=== PATIENT | female | born 1945 | race Caucasian/White ===

== ENCOUNTER → 2024-10-15 | Outpatient (CLI) | payer OTHER, SELFPAY ==
[2024-10-15 18:12] LABS: Amphetamine/Methamp Scrn,U Negative (Negative); Barbiturate Screen,Urine Positive (Negative); Benzodiazepines Screen,Urine Negative (Negative); Benzoylecgonine Screen, Ur Negative (Negative); Fentanyl Screen,Urine Negative (Negative); Opiate Screen,Urine Positive (Negative); THC Screen,Urine Negative (Negative)
== END | disposition home or self-care (01) ==
LOC: SLDO 15:48
PROVIDERS: PCP Family Medicine; Referring Provider Family Medicine; Visit Provider Family Medicine
DX: M17.9 Osteoarthritis of knee, unspecified (principal); Z79.891 Long term (current) use of opiate analgesic
CPT/HCPCS: 80307

== ENCOUNTER → 2024-10-21 | Outpatient (CLI) | payer OTHER, SELFPAY ==
[2024-10-21 10:24] LABS: Basophils % (Auto) 0 % (0-2.5); Eosinophils # (Auto) 0.2 Thou/mm3 (0.0-0.5); Eosinophils % (Auto) 3 % (0-10); Hematocrit 41.3 % (36.0-46.0); Hemoglobin 13.9 g/dL (12.0-16.0); Immature Granulocytes % (Auto) 0 % (0-0); Immature Granulocytes Auto 0.02 Thou/mm3 (0.00-0.00); Lymphocytes # (Auto) 1.8 Thou/mm3 (1.0-4.8); Lymphocytes % (Auto) 26 % (10-50); Mean Corpuscular HGB Conc 33.7 g/dl (31.0-37.0); Mean Corpuscular Volume 92 fL (80-100); Monocytes # (Auto) 0.6 Thou/mm3 (0.0-0.8); Monocytes % (Auto) 8 % (0-12); Neutrophils # (Auto) 4.3 Thou/mm3 (1.8-7.7); Neutrophils % (Auto) 62 % (37-80); Nucleated Red Blood Cell % 0 /100 WBC (0); Platelet Count 200 Thou/mm3 (140-440); RDW Standard Deviation 43.5 fL (36.4-46.3); Red Blood Count 4.49 Miln/mm3 (4.00-5.20); White Blood Count 6.9 Thou/mm3 (3.6-11.0)
[2024-10-21 10:34] LABS: Glucose Estimated Average 123 mg/dL (80-131); Hemoglobin A1C 5.9 % Hgb (4.8-6.0)
[2024-10-21 10:38] LABS: Partial Thromboplastin Time 29.9 Seconds (22.0-36.0); Prothrombin Time 10.8 Seconds (9.0-12.2)
[2024-10-21 10:51] LABS: Vitamin D 25 Hydroxy Total 64.5 ng/mL (7.3-40.2)
[2024-10-21 10:52] LABS: Creatinine MALB Rnd Ur 66 mg/dL (30-125); Microalbumin, Random Urine < 3 mg/L (0-300)
[2024-10-21 10:58] LABS: Ferritin 68 ng/mL (7.3-270.7)
[2024-10-21 11:01] LABS: Alanine Aminotransferase 16 U/L (10-49); Albumin, Serum 4.3 gm/dL (3.4-4.8); Alkaline Phosphatase 96 U/L (46-116); Anion Gap 9 (7-16); Aspartate Amino Transferase 19 U/L (0-34); BUN/Creatinine Ratio 23 Ratio (12-20); Bilirubin,Direct 0.1 mg/dL (0.0-0.3); Bilirubin,Total 0.4 mg/dL (0.3-1.2); Blood Urea Nitrogen 14 mg/dL (9-23); Calcium 9.3 mg/dL (8.3-10.6); Calcium (Corrected) 9.3 mg/dL (8.5-10.1); Carbon Dioxide 29.1 mMol/L (20.0-31.0); Cardiac Risk Estimate 3.6 RATIO (3.7-5.6); Chloride 102 mMol/L (98-107); Cholesterol 144 mg/dL (132-200); Creatinine (Component) 0.6 mg/dL (0.6-1.3); Globulin 2.2 gm/dL (2.3-3.5); Glucose 113 mg/dL (74-106); HDL Cholesterol 40 mg/dL (40-60); LDL Cholesterol,Calculated 67 mg/dL (0-130); Osmolality,Calculated 280 (275-295); Potassium 4.4 mMol/L (3.4-5.1); Sodium 140 mMol/L (136-145); Total Protein 6.5 gm/dL (5.7-8.2); Triglycerides 184 mg/dL (30-150); eGFR > 60 See Note
== END | disposition home or self-care (01) ==
LOC: COPL 08:16
PROVIDERS: PCP Family Medicine; Referring Provider Internal Medicine Gastroenterology; Visit Provider Nurse Practitioner Family
DX: E11.65 Type 2 diabetes mellitus with hyperglycemia (principal); R13.10 Dysphagia, unspecified
CPT/HCPCS: 36415; 80053; 80061; 82043; 82248; 82306; 82570; 82728; 83036; 85025; 85610; 85730

== ENCOUNTER → 2024-10-23 | Outpatient (CLI) | payer OTHER, SELFPAY ==
[2024-10-30 06:45] LABS: Helicobacter pylori Ag, Stool* NOT DETECTED (NOT DETECTED)
[2024-11-02 06:35] LABS: Calprotectin, Stool* 331 mcg/g
== END | disposition home or self-care (01) ==
LOC: SLDO 13:23
PROVIDERS: Referring Provider Nurse Practitioner Family; Visit Provider Nurse Practitioner Family
DX: R13.10 Dysphagia, unspecified (principal)
CPT/HCPCS: 83993; 87338

== ENCOUNTER 2024-11-18 11:05 | Day surgery (SDC) | payer OTHER, SELFPAY ==
--- NOTE | 2024-11-17 09:18 | EKG_ITS ---
[facility] Test Date: 2024-11-17 Pat Name: BRENT HWANG Department: Room: - Gender: Female Lead Web Developer: CELESTINE : 1945 Requested By: Justus Toro Order Number: [id number] Reading MD: Justus Toro Measurements Intervals [place] Rate: 80 P: 25 VA: 221 QRS: -16 QRSD: 110 T: 66 QT: 393 QTc: 454 Interpretive Statements SINUS RHYTHM WITH FIRST DEGREE AV BLOCK WITH OCCASIONAL ECTOPIC PREMATURE COMPLEXES MODERATE INTRAVENTRICULAR CONDUCTION DELAY NONSPECIFIC T-WAVE ABNORMALITY Compared to ECG 08/29/2021 13:32:36 First degree AV block now present Intraventricular conduction delay now present T-wave abnormality now present ST (T wave) deviation no longer present /store/S0/[id number]
[2024-11-17 13:35] LABS: Alanine Aminotransferase 15 U/L (10-49); Albumin, Serum 4.1 gm/dL (3.4-4.8); Albumin/Globulin Ratio 1.8 (1.2-2.2); Alkaline Phosphatase 86 U/L (46-116); Anion Gap 7 (7-16); Aspartate Amino Transferase 17 U/L (0-34); BUN/Creatinine Ratio 18 Ratio (12-20); Bilirubin,Total 0.5 mg/dL (0.3-1.2); Blood Urea Nitrogen 11 mg/dL (9-23); Calcium 9.1 mg/dL (8.3-10.6); Calcium (Corrected) 9.1 mg/dL (8.5-10.1); Carbon Dioxide 29.3 mMol/L (20.0-31.0); Chloride 103 mMol/L (98-107); Creatinine (Component) 0.6 mg/dL (0.6-1.3); Globulin 2.3 gm/dL (2.3-3.5); Glucose 116 mg/dL (74-106); Osmolality,Calculated 277 (275-295); Potassium 4.3 mMol/L (3.4-5.1); Sodium 139 mMol/L (136-145); Total Protein 6.4 gm/dL (5.7-8.2); eGFR > 60 See Note
[2024-11-17 14:06] VITALS: BMI 31.1
[2024-11-18 11:35] VITALS: BP 141/74; PULSE 83; RESP 13; TEMP 37; O2SAT 97
[2024-11-18] MEDS: SODIUM CHLORIDE 0.9% 500 ML 500 ML 20 ML IV (11:45)
[2024-11-18 15:20] VITALS: BP 112/88; PULSE 82; RESP 18; TEMP 36.7; O2SAT 98
[2024-11-18 15:30] VITALS: BP 106/64; PULSE 69; RESP 16; O2SAT 100
[2024-11-18 15:40] VITALS: BP 114/72; PULSE 64; RESP 14; TEMP 36.7; O2SAT 100
--- NOTE | 2024-11-18 16:04 | SUR.PHASEII ---
1520: Pt received in [facility] via [facility]. Report from Abi BARNETT and Dr. Toro. Pt groggy, but awake. Resp even, unlabored. VS stable. Denies pain. 1550: Pt more awake, alert. Sitting up toleratiing po ice chips with no difficulty swallowing and no n/v.
--- NOTE | 2024-11-18 16:37 | SUR.PHASEII ---
1605: Pt fully awake, oriented x3. Pt dressed. Assisted to transport chair. Ambulation steady. Pt and friend stated understanding of discharge instructions. Pt discharged from [facility] in stable condition.
== END 2024-11-18 16:05 | disposition home or self-care (01) ==
PROVIDERS: Anesthesiology; PCP Family Medicine; Referring Provider Internal Medicine Gastroenterology; Visit Provider Internal Medicine Gastroenterology
PROC: 0DJD8ZZ Inspection of Lower Intestinal Tract, Via Natural or Artificial Opening Endoscopic (ICD-10-PCS; CPT 45378; principal; 2024-11-18 12:45)
PROC: (CPT 43239; 2024-11-18 12:45)
DX: K52.9 Noninfective gastroenteritis and colitis, unspecified (principal); D12.2 Benign neoplasm of ascending colon; D12.4 Benign neoplasm of descending colon; D12.3 Benign neoplasm of transverse colon; D12.5 Benign neoplasm of sigmoid colon; K64.1 Second degree hemorrhoids; K57.30 Diverticulosis of large intestine without perforation or abscess without bleeding; K29.50 Unspecified chronic gastritis without bleeding; K31.89 Other diseases of stomach and duodenum; K44.9 Diaphragmatic hernia without obstruction or gangrene; Z01.810 Encounter for preprocedural cardiovascular examination; I25.10 Atherosclerotic heart disease of native coronary artery without angina pectoris
CPT/HCPCS: 45380; 45385; 36415; 80053; 93005; A4217; A4649; J2250; J2371; J2704; J3010; J7040

== ENCOUNTER → 2025-01-26 | Outpatient (CLI) | payer OTHER, SELFPAY ==
[2025-01-26 11:53] LABS: Basophils % (Auto) 1 % (0-2.5); Eosinophils # (Auto) 0.1 Thou/mm3 (0.0-0.5); Eosinophils % (Auto) 2 % (0-10); Hematocrit 40.3 % (36.0-46.0); Hemoglobin 13.4 g/dL (12.0-16.0); Immature Granulocytes % (Auto) 0 % (0-0); Immature Granulocytes Auto 0.01 Thou/mm3 (0.00-0.00); Lymphocytes # (Auto) 2.2 Thou/mm3 (1.0-4.8); Lymphocytes % (Auto) 34 % (10-50); Mean Corpuscular HGB Conc 33.3 g/dl (31.0-37.0); Mean Corpuscular Hemoglobin 31.6 pg (25.0-35.0); Mean Corpuscular Volume 95 fL (80-100); Monocytes # (Auto) 0.5 Thou/mm3 (0.0-0.8); Monocytes % (Auto) 8 % (0-12); Neutrophils # (Auto) 3.7 Thou/mm3 (1.8-7.7); Neutrophils % (Auto) 56 % (37-80); Nucleated Red Blood Cell % 0 /100 WBC (0); Platelet Count 215 Thou/mm3 (140-440); Red Blood Count 4.24 Miln/mm3 (4.00-5.20); White Blood Count 6.6 Thou/mm3 (3.6-11.0)
[2025-01-26 12:03] LABS: Glucose Estimated Average 120 mg/dL (80-131); Hemoglobin A1C 5.8 % Hgb (4.8-6.0)
[2025-01-26 12:44] LABS: Alanine Aminotransferase 18 U/L (10-49); Albumin, Serum 4.2 gm/dL (3.4-4.8); Albumin/Globulin Ratio 1.9 (1.2-2.2); Alkaline Phosphatase 84 U/L (46-116); Anion Gap 6 (7-16); Aspartate Amino Transferase 19 U/L (0-34); BUN/Creatinine Ratio 22 Ratio (12-20); Bilirubin,Total 0.3 mg/dL (0.3-1.2); Blood Urea Nitrogen 13 mg/dL (9-23); Carbon Dioxide 29.2 mMol/L (20.0-31.0); Chloride 101 mMol/L (98-107); Creatinine (Component) 0.6 mg/dL (0.6-1.3); Globulin 2.2 gm/dL (2.3-3.5); Glucose 139 mg/dL (74-106); Osmolality,Calculated 274 (275-295); Potassium 4.3 mMol/L (3.4-5.1); Sodium 136 mMol/L (136-145); Total Protein 6.4 gm/dL (5.7-8.2); eGFR > 60 See Note
[2025-01-26 12:47] LABS: Microalbumin, Random Urine < 3 mg/L (0-300)
[2025-01-26 12:59] LABS: Creatinine MALB Rnd Ur 75 mg/dL (30-125)
[2025-01-26 13:02] LABS: Cholesterol 139 mg/dL (132-200); HDL Cholesterol 35 mg/dL (40-60); LDL Cholesterol,Calculated 61 mg/dL (0-130); Triglycerides 215 mg/dL (30-150)
== END | disposition home or self-care (01) ==
PROVIDERS: PCP Family Medicine; Referring Provider Nurse Practitioner Family; Visit Provider Nurse Practitioner Family
DX: E11.65 Type 2 diabetes mellitus with hyperglycemia (principal)
CPT/HCPCS: 36415; 80053; 80061; 82043; 82570; 83036; 85025

== ENCOUNTER → 2025-02-11 | Outpatient (CLI) | payer OTHER, SELFPAY ==
--- NOTE | 2025-02-11 11:20 | XR_ITS ---
Examination: Abdomen sonogram, complete Date and time of exam: February 11, 2025 1124 hours INDICATIONS: Epigastric pain this week. Technique: Multiple real-time grayscale transabdominal sonographic images of the abdomen have been obtained. Findings: Absent gallbladder Common bile duct 0.6 cm no stones Pancreatic head 2.3 cm Aorta not enlarged Liver 15.4 cm no focal liver lesions Normal hepatopedal portal venous flow Patent IVC Right kidney 10.1 cm renal cortex 2.2 cm Left kidney 10.1 cm renal cortex 2.2 cm Mild left renal parenchymal scar formation Spleen 8.7 cm IMPRESSION: Absent gallbladder Normal common bile duct No focal liver lesions
== END | disposition home or self-care (01) ==
LOC: CDIM 11:01
PROVIDERS: PCP Family Medicine; Referring Provider Family Medicine; Visit Provider Family Medicine
DX: R10.9 Unspecified abdominal pain (principal); Z90.49 Acquired absence of other specified parts of digestive tract
CPT/HCPCS: 76700

== ENCOUNTER → 2025-04-27 | Outpatient (CLI) | payer OTHER, SELFPAY ==
[2025-04-27 11:42] LABS: Basophils # (Auto) 0.0 Thou/mm3 (0.0-0.2); Basophils % (Auto) 0 % (0-2.5); Eosinophils # (Auto) 0.2 Thou/mm3 (0.0-0.5); Eosinophils % (Auto) 3 % (0-10); Hematocrit 40.2 % (36.0-46.0); Hemoglobin 13.2 g/dL (12.0-16.0); Immature Granulocytes Auto 0.01 Thou/mm3 (0.00-0.00); Lymphocytes # (Auto) 2.8 Thou/mm3 (1.0-4.8); Lymphocytes % (Auto) 41 % (10-50); Mean Corpuscular HGB Conc 32.8 g/dl (31.0-37.0); Mean Corpuscular Hemoglobin 31.8 pg (25.0-35.0); Mean Corpuscular Volume 97 fL (80-100); Monocytes # (Auto) 0.6 Thou/mm3 (0.0-0.8); Monocytes % (Auto) 9 % (0-12); Neutrophils # (Auto) 3.2 Thou/mm3 (1.8-7.7); Neutrophils % (Auto) 47 % (37-80); Nucleated Red Blood Cell # 0.00 Thou/mm3 (0.00-0.00); Nucleated Red Blood Cell % 0 /100 WBC (0); Platelet Count 213 Thou/mm3 (140-440); RDW Standard Deviation 47.0 fL (36.4-46.3); Red Blood Count 4.15 Miln/mm3 (4.00-5.20); White Blood Count 6.8 Thou/mm3 (3.6-11.0)
[2025-04-27 11:43] LABS: Glucose Estimated Average 126 mg/dL (80-131); Hemoglobin A1C 6.0 % Hgb (4.8-6.0)
[2025-04-27 11:52] LABS: Creatinine MALB Rnd Ur 58 mg/dL (30-125); Microalbumin, Random Urine < 3 mg/L (0-300)
[2025-04-27 12:09] LABS: Alanine Aminotransferase 14 U/L (10-49); Albumin, Serum 3.9 gm/dL (3.4-4.8); Albumin/Globulin Ratio 2.0 (1.2-2.2); Alkaline Phosphatase 82 U/L (46-116); Anion Gap 7 (7-16); Aspartate Amino Transferase 19 U/L (0-34); BUN/Creatinine Ratio 17 Ratio (12-20); Bilirubin,Total 0.3 mg/dL (0.3-1.2); Blood Urea Nitrogen 12 mg/dL (9-23); Calcium 9.0 mg/dL (8.3-10.6); Calcium (Corrected) 9.1 mg/dL (8.5-10.1); Carbon Dioxide 29.6 mMol/L (20.0-31.0); Cardiac Risk Estimate 3.7 RATIO (3.7-5.6); Chloride 103 mMol/L (98-107); Cholesterol 139 mg/dL (132-200); Creatinine (Component) 0.7 mg/dL (0.6-1.3); Globulin 2.0 gm/dL (2.3-3.5); Glucose 97 mg/dL (74-106); HDL Cholesterol 38 mg/dL (40-60); LDL Cholesterol,Calculated 57 mg/dL (0-130); Osmolality,Calculated 279 (275-295); Potassium 4.5 mMol/L (3.4-5.1); Sodium 140 mMol/L (136-145); Total Protein 5.9 gm/dL (5.7-8.2); Triglycerides 221 mg/dL (30-150); eGFR > 60 See Note
== END | disposition home or self-care (01) ==
PROVIDERS: PCP Family Medicine; Referring Provider Nurse Practitioner Family; Visit Provider Nurse Practitioner Family
DX: E11.65 Type 2 diabetes mellitus with hyperglycemia (principal); I50.42 Chronic combined systolic (congestive) and diastolic (congestive) heart failure; K21.9 Gastro-esophageal reflux disease without esophagitis; F02.A0 Dementia in other diseases classified elsewhere, mild, without behavioral disturbance, psychotic disturbance, mood disturbance, and anxiety; R23.9 Unspecified skin changes
CPT/HCPCS: 36415; 80053; 80061; 82043; 82570; 83036; 85025

== ENCOUNTER → 2025-07-01 | Outpatient (CLI) | payer OTHER, SELFPAY ==
--- NOTE | 2025-07-01 10:35 | XR_ITS ---
Examination:Right hip AP, lateral, AP pelvis 3 views Technique: Hip AP lateral, AP pelvis, 3 views Exam date and time:July 01, 2025, 1037 hours INDICATIONS: Right hip pain beginning one week ago FINDINGS: Moderate osteopenia No right hip fracture or dislocation Moderate narrowing hip joints bilaterally Bones of the pelvis intact IMPRESSION: Moderate bilateral hip osteophytes arthritis.
== END | disposition home or self-care (01) ==
PROVIDERS: PCP Family Medicine; Referring Provider Registered Nurse; Visit Provider Registered Nurse
DX: M25.752 Osteophyte, left hip (principal); M25.751 Osteophyte, right hip; M13.852 Other specified arthritis, left hip; M13.851 Other specified arthritis, right hip
CPT/HCPCS: 73502

== ENCOUNTER → 2025-07-20 | Outpatient (CLI) | payer OTHER, SELFPAY ==
[2025-07-20 14:27] LABS: Collection Type, Urine Clean Catch
[2025-07-20 16:42] LABS: Bacteria,Urine Rare; Bilirubin,Urine Negative (Negative); Blood,Urine 2+ (Negative); Color,Urine Yellow (Lt Yel-Yel); Glucose, Urine Negative (Negative); Ketones,Urine Negative (Negative); Leukocyte Esterase,Urine Positive (Negative); Nitrite,Urine Negative (Negative); PH,Urine 5.5 (5.0-7.0); Protein,Urine Negative (Neg - Trace); RBC,Urine 1 /hpf (0-3); Specific Gravity,Urine 1.014 (1.001-1.035); Squamous Epithelial Cell,Urine 8 /hpf (0-5); Urobilinogen,Urine Negative mg/dL (0.0-1.0); WBC,Urine 66 /hpf (0-5)
[2025-07-20 16:55] LABS: Clarity,Urine Hazy (Clear/Hazy)
== END | disposition home or self-care (01) ==
LOC: SLDO 14:16
PROVIDERS: PCP Family Medicine; Referring Provider Family Medicine; Visit Provider Family Medicine
DX: N39.0 Urinary tract infection, site not specified (principal)
CPT/HCPCS: 81001; 87086

== ENCOUNTER 2025-07-21 09:38 | Emergency (ER) | payer OTHER, SELFPAY ==
[2025-07-21] VITALS (11 sets, daily range): BP systolic 74–121; BP diastolic 38–86; PULSE 84–102; RESP 14–23; TEMP 37.1–37.7; O2SAT 90–100; BMI 28.3
--- NOTE | 2025-07-21 10:16 | EKG_ITS ---
[facility] Test Date: 2025-07-21 Pat Name: BRENT HWAGN Department: Room: - Gender: Female Arts And Crafts Instructor: : 1945 Requested By: Hector Mckeon (LETY) Order Number: [id number] Reading MD: Hector Mckeon (DRIER UNLOADER) Measurements Intervals [place] Rate: 84 P: 51 CO: 214 QRS: -5 QRSD: 105 T: 79 QT: 357 QTc: 422 Interpretive Statements SINUS RHYTHM WITH FIRST DEGREE AV BLOCK NONSPECIFIC T-WAVE ABNORMALITY Compared to ECG 11/17/2024 12:46:37 Intraventricular conduction delay no longer present T-wave abnormality still present /store/S0/[id number]/[id number].pdf
--- NOTE | 2025-07-21 10:16 | XR_ITS ---
EXAMINATION: AP chest single view TECHNIQUE: AP portable sitting chest single view Date and time: July 21, 2025, 1019 hours, comparison August 29, 2021 INDICATION: Chest pain coughing today. FINDINGS: Basilar bronchitis pattern Normal heart size Aortic valve replacement Median sternotomy wires No lobar pneumonia or isaac pulmonary edema IMPRESSION: Basilar bronchitis pattern
--- NOTE | 2025-07-21 10:17 | PD.EDRME ---
Rapid Medical Screening Exam RME Arrival date/time: 07/21/25 09:38 80-year-old female presents to the emergency department via EMS for complaints of generalized weakness. Chief Complaint: General Adult/Misc Complain Vital signs: Vital Signs Temperature 99.2 F 07/21/25 09:38 Pulse Rate 95 07/21/25 09:38 Respiratory Rate 19 07/21/25 09:38 Blood Pressure 106/65 07/21/25 09:38 Pulse Oximetry (%) 92 L 07/21/25 09:38 Oxygen Delivery Method Room Air 07/21/25 09:38
[2025-07-21 10:48] LABS: Collection Type, Urine Clean Catch
[2025-07-21 10:54] LABS: Basophils # (Auto) 0.0 Thou/mm3 (0.0-0.2); Basophils % (Auto) 0 % (0-2.5); Eosinophils # (Auto) 0.0 Thou/mm3 (0.0-0.5); Eosinophils % (Auto) 0 % (0-10); Hematocrit 40.0 % (36.0-46.0); Hemoglobin 13.6 g/dL (12.0-16.0); Immature Granulocytes Auto 0.06 Thou/mm3 (0.00-0.00); Lymphocytes # (Auto) 0.2 Thou/mm3 (1.0-4.8); Lymphocytes % (Auto) 2 % (10-50); Mean Corpuscular HGB Conc 34.0 g/dl (31.0-37.0); Mean Corpuscular Hemoglobin 31.3 pg (25.0-35.0); Mean Corpuscular Volume 92 fL (80-100); Monocytes # (Auto) 0.5 Thou/mm3 (0.0-0.8); Monocytes % (Auto) 4 % (0-12); Neutrophils # (Auto) 12.2 Thou/mm3 (1.8-7.7); Neutrophils % (Auto) 93 % (37-80); Nucleated Red Blood Cell # 0.00 Thou/mm3 (0.00-0.00); Nucleated Red Blood Cell % 0 /100 WBC (0); Platelet Count 180 Thou/mm3 (140-440); RDW Standard Deviation 44.0 fL (36.4-46.3); Red Blood Count 4.34 Miln/mm3 (4.00-5.20); White Blood Count 13.0 Thou/mm3 (3.6-11.0)
--- NOTE | 2025-07-21 11:00 | PC.NURSE ---
Pt came in due to feeling gen weakness and had recent dx of UTI and is currently being treated by pmd. pt was assessed in triage and noted low bp, so pt was placed in ed bed 4 for further evaluation. pt has iv line and placed on campus monitor. bp 91/57 currently in room. md ordered iv fluids for bp. pt A&Ox4.
[2025-07-21 11:09] LABS: INR 1.0 (0.9-1.3); Partial Thromboplastin Time 32.5 Seconds (22.0-36.0); Prothrombin Time 11.1 Seconds (9.0-12.2)
[2025-07-21 11:12] LABS: Alanine Aminotransferase 15 U/L (10-49); Albumin, Serum 4.3 gm/dL (3.4-4.8); Albumin/Globulin Ratio 2.3 (1.2-2.2); Alkaline Phosphatase 82 U/L (46-116); Anion Gap 9 (7-16); Aspartate Amino Transferase 21 U/L (0-34); BUN/Creatinine Ratio 15 Ratio (12-20); Bilirubin,Total 0.7 mg/dL (0.3-1.2); Blood Urea Nitrogen 12 mg/dL (9-23); Calcium 8.8 mg/dL (8.3-10.6); Calcium (Corrected) 8.8 mg/dL (8.5-10.1); Carbon Dioxide 27.2 mMol/L (20.0-31.0); Chloride 101 mMol/L (98-107); Creatinine (Component) 0.8 mg/dL (0.6-1.3); Estimated Creatinine Clearance 49.8 mL/min (>60); Globulin 1.9 gm/dL (2.3-3.5); Glucose 241 mg/dL (74-106); Magnesium 2.0 mg/dL (1.6-2.6); Osmolality,Calculated 281 (275-295); Potassium 4.2 mMol/L (3.4-5.1); Sodium 137 mMol/L (136-145); Total Protein 6.2 gm/dL (5.7-8.2); Troponin I < 0.020 ng/mL (0.0-0.045); eGFR > 60 See Note
[2025-07-21] MEDS: SODIUM CHLORIDE 0.9% 1000 ML 1,000 ML 999 ML IV (11:13)
[2025-07-21 11:43] LABS: Amphetamine/Methamp Scrn,U Negative (Negative); Barbiturate Screen,Urine Positive (Negative); Benzodiazepines Screen,Urine Negative (Negative); Benzoylecgonine Screen, Ur Negative (Negative); Fentanyl Screen,Urine Negative (Negative); Opiate Screen,Urine Positive (Negative); THC Screen,Urine Negative (Negative)
[2025-07-21 11:54] LABS: B-Type Natriuretic Peptide 76 pg/mL (0-100)
--- NOTE | 2025-07-21 11:58 | PD.EDWEAK ---
ED Weakness RME/HPI General Chief complaint: General Adult/Misc Complain Stated complaint: WEAKNESS Arrival date/time: 07/21/25 09:38 RME / HPI RME / HPI Narrative: 07/21/25 09:38 80-year-old female presents to the emergency department via EMS for complaints of generalized weakness. DR. FELDER MAIN ED EVALUATION 80 year old female with history of hypertension, diabetes, hyperlipidemia presents to the ED [facility] from [facility] for evaluation of global weakness today. Patient reports she was having difficulty getting out of bed for breakfast this morning, prompting calling 911. Additionally complains of diffuse body pain though states I always have pain . States pain today unchanged. Patient additionally reports she has been packing the last several days in preparation to moving in with daughter this upcoming Saturday. Patient states she feels worn out from packing and unsure if that is exacerbating her symptoms. Denies fever, chills, sweating. Denies chest pain, cough, shortness of breath. Denies nausea, vomiting, diarrhea, constipation. Denies dysuria, urinary frequency and urgency. Related Data Home Medications ?Medication ?Instructions ?Recorded ?Confirmed docusate sodium 100 mg capsule 100 mg PO QDAY 08/29/21 11/17/24 (Colace) hydrocodone 10 mg-acetaminophen 1 tab PO Q6H PRN Moderate Pain 08/29/21 11/17/24 325 mg tablet (Scale Score 5-6) pantoprazole 40 mg tablet,delayed 40 mg PO QDAY 08/29/21 11/17/24 release sacubitril 24 mg-valsartan 26 mg 0.5 tab PO BID 08/29/21 11/17/24 tablet (Entresto) duloxetine 60 mg capsule,delayed 60 mg PO QDAY 11/17/24 11/17/24 release furosemide 20 mg tablet 20 mg PO QDAY 11/17/24 11/17/24 insulin aspart U-100 100 unit/mL 8 unit subcut TID 11/17/24 11/17/24 (3 mL) subcutaneous pen (Novolog FlexPen U-100 Insulin aspart) insulin degludec 100 26 unit subcut QDAY 11/17/24 11/17/24 unit-liraglutide 3.6 mg/mL(3 mL) subcutaneous pen (Xultophy 100/3.6) lovastatin 40 mg tablet 40 mg PO QDAY 11/17/24 11/17/24 pramipexole 0.25 mg tablet 0.25 mg PO QDAY 11/17/24 11/17/24 pregabalin 100 mg capsule 100 mg PO TID 11/17/24 11/17/24 primidone 50 mg tablet 100 mg PO BID 11/17/24 11/17/24 semaglutide 0.25 mg or 0.5 mg (2 0.25 mg subcut QWEEK 11/17/24 11/17/24 mg/3 mL) subcutaneous pen injector (Ozempic) Allergies Allergy/AdvReac Type Severity Reaction Status Date / Time NSAIDS (Non-Steroidal Allergy Severe Anaphylaxis Verified 11/18/24 15:39 Anti-Inflamma quinine Allergy Severe Anaphylaxis Verified 11/18/24 15:39 Review of Systems Review of Systems Systems Reviewed: All systems reviewed, normal except as documented Past Medical History Past Medical History NEUROLOGIC: Positive Neurological Disorders (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 ) CARDIAC: Positive Cardiac Disorders, Congestive Heart Failure and Hypertension RESPIRATORY: Positive Chronic Obstructive Pulmonary Disease (COPD) and Sleep Apnea GASTROINTESTINAL: Positive Gastrointestinal Disorders and Gastroesophageal Reflux Disease MUSCULOSKELETAL: Positive Musculoskeletal Disorders and Arthritis ENDOCRINE: Positive Endocrine Disorders and Diabetes Mellitus Type 2 PSYCHO/SOCIAL: Positive Depression and Anxiety OTHER HISTORY: Positive Cancer Surgical History SURGICAL: Positive Open Heart Surgery, Vascular Surgery (VALVE REPLACEMENT), Abdominal Surgery (LAPAROTOMY FOR COLON ADHESION), Hysterectomy and Tubal Ligation Social History SMOKING STATUS: Never smoker ED Exam Narrative Physical exam: GENERAL APPEARANCE: alert and oriented x 4, well-developed, well-nourished HEENT: Normocephalic, atraumatic; pupils equal, round, reactive to light; EOMI; mucous membranes pink, moist; oropharynx clear NECK: Supple LUNGS: CTABL; no wheezes, no rales, no rhonchi HEART: Regular rate, regular rhythm; normal S1, S2; no murmurs ABDOMEN: non distended; normal BS; soft, no tenderness, no guarding, no rebound; no masses, no organomegaly, no hernia BACK: no CVA tenderness EXTREMITIES: atraumatic; no edema NEUROLOGIC: awake; alert and oriented x4; cranial nerves II-XII grossly intact; no focal sensory or motor deficits PSYCHIATRIC: appropriate mood and affect SKIN: warm, dry, normal color; no rashes Course Course Course Narrative: Patient remains clinically stable throughout the emergency department visit. We reviewed all the results, analysis, and treatment plans. Patient is amenable to discharge. Strict return precautions were outlined. Quality Measures none Orders Category Date Time Status Bedside COVID-19 Antigen Test NOW Care 07/21/25 15:23 Completed Bedside Influenza A&B Antigen Test NOW Care 07/21/25 15:23 Completed Top Steep Tender NOW Care 07/21/25 10:16 Completed EKG (ED ONLY) *Do not use* NOW Care 07/21/25 10:16 Completed EKG (ED Only) Stat Exams 07/21/25 10:16 Draft XR chest 1V portable Stat Exams 07/21/25 10:16 Completed B-Type Natriuretic Peptide Stat Lab 07/21/25 10:35 Completed Blood Culture (Lab) Stat Lab 07/21/25 12:29 Received CBC Stat Lab 07/21/25 10:35 Completed Comprehensive Metabolic Panel Stat Lab 07/21/25 10:35 Completed Drug Screen,Urine Stat Lab 07/21/25 10:35 Completed Lactate (Lactic Acid) Stat Lab 07/21/25 12:29 Completed Lactic Acid, 3 HR Stat Lab 07/21/25 15:55 Completed Magnesium Stat Lab 07/21/25 10:35 Completed Partial Thromboplastin Time Stat Lab 07/21/25 10:35 Completed Procalcitonin Stat Lab 07/21/25 12:29 Completed Prothrombin Time with INR Stat Lab 07/21/25 10:35 Completed Troponin I Stat Lab 07/21/25 10:35 Completed Urinalysis, C/S if Indicated Stat Lab 07/21/25 10:35 Completed HYDROcodone/APAP 10 [[place] 10] Med 07/21/25 12:10 Discontinued 1 tab PO X1 ONE Sodium Chloride 0.9% 1000 ml [Ns] 1,000 ml Med 07/21/25 10:38 Discontinued IV 999 mls/hr Vital Signs Vital signs: Vital Signs Temperature 99.2 F 07/21/25 09:38 Pulse Rate 95 07/21/25 09:38 Respiratory Rate 19 07/21/25 09:38 Blood Pressure 106/65 07/21/25 09:38 Pulse Oximetry (%) 92 L 07/21/25 09:38 Oxygen Delivery Method Room Air 07/21/25 09:38 Pulse ox is 92% on room air which is low. Weakness MDM Narrative MDM Narrative:: Denita Tucker am scribing for and in the presence of Dr. Felder. Patient data External records reviewed:: [facility] previous records and EMS form Clinical information provided by:: patient and EMS Social determinants that could affect healthcare access:: none Patient has the following chronic illnesses:: HTN, DM, HLD How is presenting disease/condition affected by chronic disease/condition?: exacerbated by Evaluation data The following diagnostics were reviewed and interpreted by me:: lab results, radiology exam(s) and EKG tracing(s) (EKG @ 10:36 AM. Normal sinus rhythm with first degree AV block, rate 84, no STEMI ) Lab and/or radiology exams considered but not ordered:: None Interpretation Summary: Ordering Physician: Linda MOON)Hector NP Date of Service: 07/21/25 Procedure(s): XR chest 1V portable Accession Number(s): [id number] cc: Linda MOON),Hector DAVIDSON; Brett Feliciano MD~ EXAMINATION: AP chest single view TECHNIQUE: AP portable sitting chest single view Date and time: July 21, 2025, 1019 hours, comparison August 29, 2021 INDICATION: Chest pain coughing today. FINDINGS: Basilar bronchitis pattern Normal heart size Aortic valve replacement Median sternotomy wires No lobar pneumonia or isaac pulmonary edema IMPRESSION: Basilar bronchitis pattern Dictated By: Brett Feliciano MD Signed By: <Electronically signed by Brett Feliciano MD in OV> 07/21/25 1040 Medications / Prescriptions Medications or Prescriptions considered but not ordered:: None Medication administrations:: Medication Administration History Discontinued Medications Hydrocodone Bitart/Acetaminophen (Hydrocodone/Apap 10/325 Tab) 1 tab PO X1 ONE Stop: 07/21/25 12:11 Last Admin: 07/21/25 12:54 Dose: 1 tab Documented By: JANNIE Sodium Chloride (Ns) 1,000 mls @ 999 mls/hr IV .Q1H1M ONE Stop: 07/21/25 11:38 Last Infusion: 07/21/25 12:55 Dose: Infused Documented By: Admin: 07/21/25 11:13 Dose: 999 mls/hr Documented By: GORDON See above Consultations Consultation(s) initiated? (list below): No Diagnosis Weakness Differential Diagnosis: anemia, hypoglycemia, sepsis and dehydration Most likely diagnosis given after review of the tests above:: Generalized weakness Admission Indicated Admission indicated?: not indicated Admission Request Was there a request for admission?: No Disposition Plan Disposition Plan: Discharge Discharge Attestation Discharge Attestation: The patient and all family members were given an opportunity to ask questions and understood the discharge instructions. Discharge instructions specifically effects, indications for sooner follow up or return to the emergency department, and the expected course of current diagnosis. Patient condition: Stable Discharge Plan Plan Patient Disposition: HOME (Self Care) Prescriptions/Referrals Prescriptions/Med Rec: No Action hydrocodone-acetaminophen 10-325 mg Tablet 1 tab PO Q6H PRN (Reason: Moderate Pain (Scale Score 5-6)) pantoprazole 40 mg Tablet,Delayed Release (Dr/Ec) 40 mg PO QDAY docusate sodium [Colace] 100 mg Capsule 100 mg PO QDAY sacubitril-valsartan [Entresto] 24-26 mg Tablet 0.5 tab PO BID duloxetine 60 mg capsule,delayed release(DR/EC) 60 mg PO QDAY primidone 50 mg tablet 100 mg PO BID lovastatin 40 mg tablet 40 mg PO QDAY furosemide 20 mg tablet 20 mg PO QDAY pramipexole 0.25 mg tablet 0.25 mg PO QDAY insulin aspart U-100 [Novolog FlexPen U-100 Insulin] 100 unit/mL (3 mL) insulin pen 8 unit subcut TID pregabalin 100 mg capsule 100 mg PO TID Xultophy 100/3.6 100 unit-3.6 mg /mL (3 mL) insulin pen 26 unit subcut QDAY Ozempic 0.25 mg or 0.5 mg (2 mg/3 mL) pen injector 0.25 mg subcut QWEEK Rx Instructions: for 4 weeks Referrals: Patricio Alejandro MD [Primary Care Provider, Family Practice] - In 1 week Problem List Clinical Impression: Generalized weakness Patient/Caregiver Discharge Instructions Education Materials: ED Weakness (Uncertain Cause) Print Language: Mosotho Stand Alone Forms: [employer] Award Info., Patient Portal Info Letter
[2025-07-21 12:42] LABS: Lactate (Lactic Acid) 2.1 mMol/L (0.4-2.0)
[2025-07-21 13:08] LABS: Procalcitonin 0.78 ng/ml (0.0-0.49)
[2025-07-21 14:36] LABS: Bilirubin,Urine Negative (Negative); Blood,Urine Negative (Negative); Clarity,Urine Clear (Clear/Hazy); Color,Urine Yellow (Lt Yel-Yel); Culture Indicated,Urine Not Indicated; Glucose, Urine Negative (Negative); Ketones,Urine Trace (Negative); Leukocyte Esterase,Urine Positive (Negative); Nitrite,Urine Negative (Negative); PH,Urine 6.0 (5.0-7.0); Protein,Urine Negative (Neg - Trace); RBC,Urine 3 /hpf (0-3); Specific Gravity,Urine 1.026 (1.001-1.035); Squamous Epithelial Cell,Urine 1 /hpf (0-5); Urobilinogen,Urine Negative mg/dL (0.0-1.0); WBC,Urine 3 /hpf (0-5)
[2025-07-21 15:39] LABS: Reflex Lactate? Y
[2025-07-21 16:03] LABS: Lactic Acid, 3 HR 1.4 mMol/L (0.4-2.0)
== END 2025-07-21 17:03 | disposition home or self-care (01) ==
PROVIDERS: Nurse Practitioner Primary Care; Emergency Provider Emergency Medicine; PCP Family Medicine
DX: J40 Bronchitis, not specified as acute or chronic (principal); E11.9 Type 2 diabetes mellitus without complications; E78.5 Hyperlipidemia, unspecified; I10 Essential (primary) hypertension
CPT/HCPCS: 36415; 71045; 80053; 80307; 81001; 83605; 83735; 83880; 84145; 84484; 85025; 85610; 85730; 87040; 93005; 96360; 96361; 99285; J7030; A9270

== ENCOUNTER 2025-07-22 14:34 | Emergency (ER) | payer OTHER, SELFPAY ==
[2025-07-22] VITALS (8 sets, daily range): BP systolic 94–127; BP diastolic 44–95; PULSE 84–111; RESP 14–22; TEMP 37–38.3; O2SAT 90–99; BMI 28.3
--- NOTE | 2025-07-22 16:19 | PD.EDADULT ---
ED General RME/HPI General Chief complaint: Urogenital-Female Stated complaint: WEAKNESS Time Seen by Provider: 07/22/25 15:55 Arrival date/time: 07/22/25 14:34 Limitations: no limitations RME / HPI RME / HPI narrative: 80 year old female with history of hypertension, diabetes, hyperlipidemia presents to the ED BIB from [facility] for evaluation of global weakness, body pain, fevers, and chills today. Patient reports the body pain is chronic and unchanged baseline. Denies chest pain, cough, shortness of breath. Denies nausea, vomiting, diarrhea, constipation. Denies urinary symptoms. The patient mentioned she was evaluated here for similar body pains and feeling miserable . States she was discharged home diagnosed with generalized weakness. Related Data Home Medications ?Medication ?Instructions ?Recorded ?Confirmed docusate sodium 100 mg capsule 100 mg PO QDAY 08/29/21 11/17/24 (Colace) hydrocodone 10 mg-acetaminophen 1 tab PO Q6H PRN Moderate Pain 08/29/21 11/17/24 325 mg tablet (Scale Score 5-6) pantoprazole 40 mg tablet,delayed 40 mg PO QDAY 08/29/21 11/17/24 release sacubitril 24 mg-valsartan 26 mg 0.5 tab PO BID 08/29/21 11/17/24 tablet (Entresto) duloxetine 60 mg capsule,delayed 60 mg PO QDAY 11/17/24 11/17/24 release furosemide 20 mg tablet 20 mg PO QDAY 11/17/24 11/17/24 insulin aspart U-100 100 unit/mL 8 unit subcut TID 11/17/24 11/17/24 (3 mL) subcutaneous pen (Novolog FlexPen U-100 Insulin aspart) insulin degludec 100 26 unit subcut QDAY 11/17/24 11/17/24 unit-liraglutide 3.6 mg/mL(3 mL) subcutaneous pen (Xultophy 100/3.6) lovastatin 40 mg tablet 40 mg PO QDAY 11/17/24 11/17/24 pramipexole 0.25 mg tablet 0.25 mg PO QDAY 11/17/24 11/17/24 pregabalin 100 mg capsule 100 mg PO TID 11/17/24 11/17/24 primidone 50 mg tablet 100 mg PO BID 11/17/24 11/17/24 semaglutide 0.25 mg or 0.5 mg (2 0.25 mg subcut QWEEK 11/17/24 11/17/24 mg/3 mL) subcutaneous pen injector (Ozempic) Previous Rx's ?Medication ?Instructions ?Recorded doxycycline hyclate 100 mg capsule 100 mg PO BID #14 caps 07/22/25 Allergies Allergy/AdvReac Type Severity Reaction Status Date / Time NSAIDS (Non-Steroidal Allergy Severe Anaphylaxis Verified 11/18/24 15:39 Anti-Inflamma quinine Allergy Severe Anaphylaxis Verified 11/18/24 15:39 Review of Systems Review of Systems Systems Reviewed: All systems reviewed, normal except as documented Past Medical History Past Medical History NEUROLOGIC: Positive Neurological Disorders (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 ) CARDIAC: Positive Cardiac Disorders, Congestive Heart Failure and Hypertension RESPIRATORY: Positive Chronic Obstructive Pulmonary Disease (COPD) and Sleep Apnea GASTROINTESTINAL: Positive Gastrointestinal Disorders and Gastroesophageal Reflux Disease MUSCULOSKELETAL: Positive Musculoskeletal Disorders and Arthritis ENDOCRINE: Positive Endocrine Disorders and Diabetes Mellitus Type 2 PSYCHO/SOCIAL: Positive Depression and Anxiety OTHER HISTORY: Positive Cancer Surgical History SURGICAL: Positive Open Heart Surgery, Vascular Surgery (VALVE REPLACEMENT), Abdominal Surgery (LAPAROTOMY FOR COLON ADHESION), Hysterectomy and Tubal Ligation Social History SMOKING STATUS: Never smoker ED Exam General Limitations: Present no limitations General appearance: Present alert and in no apparent distress Head Head exam: Present atraumatic, normocephalic and normal inspection Eye Eye exam: Present normal appearance, PERRL and EOMI ENT ENT exam: Present normal exam, normal oropharynx and mucous membranes moist Neck Neck exam: Present normal inspection, full ROM and trachea midline Chest Chest inspection: Present normal inspection and symmetric chest wall rise Respiratory Respiratory exam: Present normal lung sounds bilaterally Cardiovascular Cardiovascular exam: Present regular rate, normal rhythm and normal heart sounds Abdominal Exam Abdominal exam: Present soft and normal bowel sounds Extremities Exam Extremities exam: Present normal inspection and full ROM Back Exam Back exam: Present normal inspection and full ROM Neurological Exam Neurological exam: Present alert, oriented X3 and CN II-XII intact Psychiatric Psychiatric exam: Present normal affect and normal mood Skin Skin exam: Present warm, dry, intact and normal color Course Quality Measures none Orders Category Date Time Status Assistant Sales Director NOW Care 07/22/25 17:27 Completed Continuous Pulse Oximetry NOW Care 07/22/25 17:27 Completed EKG (ED ONLY) *Do not use* NOW Care 07/22/25 17:27 Completed Insert IV NOW Care 07/22/25 17:27 Completed EKG (ED Only) Stat Exams 07/22/25 17:27 Draft XR chest 1V portable Stat Exams 07/22/25 17:27 Completed CBC Stat Lab 07/22/25 18:05 Completed Comprehensive Metabolic Panel Stat Lab 07/22/25 18:05 Completed Prothrombin Time with INR Stat Lab 07/22/25 18:05 Completed HYDROcodone*/APAP 5/325 [[place] 5/325] Med 07/22/25 19:15 Discontinued 1 tab PO X1 ONE Sodium Chloride 0.9% 1000 ml [Ns] 1,000 ml Med 07/22/25 17:27 Discontinued IV 100 mls/hr cefTRIAXone [Rocephin] 2 gm Med 07/22/25 17:29 Discontinued SODIUM CHLORIDE 0.9% ([place]) [Ns 0.9% (P)] 50 ml IV X1 Vital Signs Vital signs: Vital Signs Temperature 101 F H 07/22/25 14:40 Pulse Rate 101 H 07/22/25 14:40 Respiratory Rate 20 07/22/25 14:40 Blood Pressure 106/59 L 07/22/25 14:40 Pulse Oximetry (%) 90 L 07/22/25 14:40 Oxygen Delivery Method Room Air 07/22/25 14:40 Discharge Plan Plan Patient Disposition: HOME (Self Care) Prescriptions/Referrals Prescriptions/Med Rec: New doxycycline hyclate 100 mg capsule 100 mg PO BID Qty: 14 0RF No Action hydrocodone-acetaminophen 10-325 mg Tablet 1 tab PO Q6H PRN (Reason: Moderate Pain (Scale Score 5-6)) pantoprazole 40 mg Tablet,Delayed Release (Dr/Ec) 40 mg PO QDAY docusate sodium [Colace] 100 mg Capsule 100 mg PO QDAY sacubitril-valsartan [Entresto] 24-26 mg Tablet 0.5 tab PO BID duloxetine 60 mg capsule,delayed release(DR/EC) 60 mg PO QDAY primidone 50 mg tablet 100 mg PO BID lovastatin 40 mg tablet 40 mg PO QDAY furosemide 20 mg tablet 20 mg PO QDAY pramipexole 0.25 mg tablet 0.25 mg PO QDAY insulin aspart U-100 [Novolog FlexPen U-100 Insulin] 100 unit/mL (3 mL) insulin pen 8 unit subcut TID pregabalin 100 mg capsule 100 mg PO TID Xultophy 100/3.6 100 unit-3.6 mg /mL (3 mL) insulin pen 26 unit subcut QDAY Ozempic 0.25 mg or 0.5 mg (2 mg/3 mL) pen injector 0.25 mg subcut QWEEK Rx Instructions: for 4 weeks Referrals: Patricio Alejandro MD [Primary Care Provider, Family Practice] - In 1 week Problem List Clinical Impression: Dyspnea, Fever Patient/Caregiver Discharge Instructions Education Materials: ED Shortness of Breath (Dyspnea) Additional Instructions: Tylenol for fever. Take the antibiotic as prescribed. Continue current medications. Follow-up with your doctor. Return to ER as needed or if condition worsens. Print Language: Filipino Stand Alone Forms: [employer] Award Info., Patient Portal Info Letter MDM Narrative Sign Out note: 1800: Patient signed out to Dr. Gomez pending labs, imaging, and final disposition. MDM hospital course (for use when minimal MDM required): Denita Tucker am scribing for and in the presence of Dr. Dill. Clinical Information Provided by: patient and EMS Medical Records reviewed [facility] and EMS Meds/Rx considered, not ordered None Labs/Rad/Tests considered, not ordered None Chronic Illness/Social Conditions which may negatively complicate care or outcome(s)-explain: None or not applicable EKG Interpretation EKG #1: EKG Interpretation: EKG @ 17:56. NSR with first degree AV block, rate 84, no STEMI. Labs Lab(s) Interpretation(s): No labs resulted during sign out Imaging Imaging Interpretation(s): No imaging performed during sign out Medication Administration(s) Medication Administration History Discontinued Medications Hydrocodone Bitart/Acetaminophen (Hydrocodone/Apap 5/325 Tablet) 1 tab PO X1 ONE Stop: 07/22/25 19:16 Last Admin: 07/22/25 19:25 Dose: 1 tab Documented By: DT Sodium Chloride (Ns) 1,000 mls @ 100 mls/hr IV .Q10H ONE Stop: 07/23/25 03:26 Last Admin: 07/22/25 17:53 Dose: 100 mls/hr Documented By: BY Ceftriaxone Sodium 2 gm/ (Sodium Chloride) 50 mls @ 100 mls/hr IV X1 ONE Stop: 07/22/25 17:58 Last Infusion: 07/22/25 18:37 Dose: Infused Documented By: Admin: 07/22/25 18:07 Dose: 100 mls/hr Documented By: BY See above
--- NOTE | 2025-07-22 17:27 | XR_ITS ---
EXAMINATION: AP chest single view TECHNIQUE: AP portable upright chest single view Date and time: July 22, 2025, 1813 hours INDICATIONS: Cough and chest pain today. FINDINGS: Early heart failure Mild enlargement cardiac contour Aortic valve replacement Prominent vascular congestion Suspicious for early septal edema IMPRESSION: Early heart failure
--- NOTE | 2025-07-22 17:27 | EKG_ITS ---
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
[2025-07-22] MEDS: SODIUM CHLORIDE 0.9% 1000 ML 1,000 ML 100 ML IV (17:53)
[2025-07-22] MEDS: cefTRIAXone 2 GM in SODIUM CHLORIDE 0.9% (Popper) 50 ML IV (18:07)
[2025-07-22 18:45] LABS: Basophils # (Auto) 0.0 Thou/mm3 (0.0-0.2); Basophils % (Auto) 0 % (0-2.5); Eosinophils # (Auto) 0.0 Thou/mm3 (0.0-0.5); Eosinophils % (Auto) 0 % (0-10); Hematocrit 37.3 % (36.0-46.0); Hemoglobin 12.6 g/dL (12.0-16.0); Immature Granulocytes Auto 0.04 Thou/mm3 (0.00-0.00); Lymphocytes # (Auto) 0.3 Thou/mm3 (1.0-4.8); Lymphocytes % (Auto) 3 % (10-50); Mean Corpuscular HGB Conc 33.8 g/dl (31.0-37.0); Mean Corpuscular Hemoglobin 31.2 pg (25.0-35.0); Mean Corpuscular Volume 92 fL (80-100); Monocytes # (Auto) 0.3 Thou/mm3 (0.0-0.8); Monocytes % (Auto) 3 % (0-12); Neutrophils # (Auto) 9.2 Thou/mm3 (1.8-7.7); Neutrophils % (Auto) 94 % (37-80); Nucleated Red Blood Cell # 0.00 Thou/mm3 (0.00-0.00); Nucleated Red Blood Cell % 0 /100 WBC (0); Platelet Count 146 Thou/mm3 (140-440); RDW Standard Deviation 45.5 fL (36.4-46.3); Red Blood Count 4.04 Miln/mm3 (4.00-5.20); White Blood Count 9.9 Thou/mm3 (3.6-11.0)
[2025-07-22 19:00] LABS: INR 1.0 (0.9-1.3); Prothrombin Time 11.0 Seconds (9.0-12.2)
[2025-07-22 19:05] LABS: Alanine Aminotransferase 105 U/L (10-49); Albumin, Serum 3.9 gm/dL (3.4-4.8); Albumin/Globulin Ratio 2.1 (1.2-2.2); Alkaline Phosphatase 121 U/L (46-116); Anion Gap 11 (7-16); Aspartate Amino Transferase 175 U/L (0-34); BUN/Creatinine Ratio 20 Ratio (12-20); Bilirubin,Total 0.5 mg/dL (0.3-1.2); Blood Urea Nitrogen 14 mg/dL (9-23); Calcium 8.3 mg/dL (8.3-10.6); Calcium (Corrected) 8.4 mg/dL (8.5-10.1); Carbon Dioxide 23.7 mMol/L (20.0-31.0); Chloride 98 mMol/L (98-107); Creatinine (Component) 0.7 mg/dL (0.6-1.3); Estimated Creatinine Clearance 56.9 mL/min (>60); Globulin 1.9 gm/dL (2.3-3.5); Glucose 208 mg/dL (74-106); Osmolality,Calculated 272 (275-295); Potassium 4.2 mMol/L (3.4-5.1); Sodium 133 mMol/L (136-145); Total Protein 5.8 gm/dL (5.7-8.2); eGFR > 60 See Note
--- NOTE | 2025-07-22 19:23 | PD.EDADDENDU ---
Emergency Room Addendum <Chrissy Lanier - Last Filed: 07/22/25 20:16> Addendum Narrative: 1899: Care assumed from Dr. Dill, the previous shift emergency physician. Past medical, surgical, social and family history reviewed. Vitals and home medications reviewed. Results and treatment plan discussed. I will assume the care of the patient at this time and will follow the patient, pending work-up. RADIOLOGY RESULTS: [facility] Report Signed Patient: BRENT HWANG [facility]. Record#: [id number] Birthdate: 1945 Age/Sex: 80 / F Location: [facility] Attending Dr: Ordering Physician: Denys Dill MD Date of Service: 07/22/25 Procedure(s): XR chest 1V portable Accession Number(s): [id number] cc: Denys Dill MD; Brett Feliciano MD; Patricio Alejandro MD~ EXAMINATION: AP chest single view TECHNIQUE: AP portable upright chest single view Date and time: July 22, 2025, 181 hours INDICATIONS: Cough and chest pain today. FINDINGS: Early heart failure Mild enlargement cardiac contour Aortic valve replacement Prominent vascular congestion Suspicious for early septal edema IMPRESSION: Early heart failure Dictated By: Brett Feliciano MD Signed By: <Electronically signed by Brett Feliciano MD in [place]> 07/22/251906 <Cheo Gomez DO - Last Filed: 07/22/25 20:16> Addendum Narrative: 1899: Care assumed from Dr. Dill, the previous shift emergency physician. Past medical, surgical, social and family history reviewed. Vitals and home medications reviewed. Results and treatment plan discussed. I will assume the care of the patient at this time and will follow the patient, pending work-up. RADIOLOGY RESULTS: [facility] Report Signed Patient: BRENT HWANG [facility]. Record#: [id number] Birthdate: 1945 Age/Sex: 80 / F Location: [facility] Attending Dr: Ordering Physician: Denys Dill MD Date of Service: 07/22/25 Procedure(s): XR chest 1V portable Accession Number(s): [id number] cc: Denys Dill MD; Brett Feliciano MD; Patricio Alejandro MD~ EXAMINATION: AP chest single view TECHNIQUE: AP portable upright chest single view Date and time: July 22, 2025, 1813 hours INDICATIONS: Cough and chest pain today. FINDINGS: Early heart failure Mild enlargement cardiac contour Aortic valve replacement Prominent vascular congestion Suspicious for early septal edema IMPRESSION: Early heart failure Dictated By: Brett Feliciano MD Signed By: <Electronically signed by Brett Feliciano MD in [place]> 07/22/251906 Case was signed out to me awaiting labs. There is no leukocytosis. Renal function is normal. There is mild transaminitis. Chest x-ray shows sternal wires to be in place with cardiomegaly without infiltrative process. There was a question of mild pulmonary edema. Patient apparently has had cough phlegm production and low-grade temperature. Patient is to continue all home medications. Patient will be started on doxycycline to be taken as prescribed. Follow-up with her doctor for further treatment and evaluation. Tylenol for fever.
[2025-07-22] MEDS: HYDROcodone/APAP 5/325 TABLET 1 TAB PO (19:25)
== END 2025-07-22 23:01 | disposition home or self-care (01) ==
PROVIDERS: Emergency Provider Family Medicine; PCP Family Medicine
DX: I11.0 Hypertensive heart disease with heart failure (principal); E11.9 Type 2 diabetes mellitus without complications; E78.5 Hyperlipidemia, unspecified; G89.29 Other chronic pain; I44.0 Atrioventricular block, first degree; I50.9 Heart failure, unspecified; Z79.4 Long term (current) use of insulin
CPT/HCPCS: 36415; 71045; 80053; 81001; 85025; 85610; 93005; 96365; 99284; J0696; J7030; J7050; A9270

== ENCOUNTER → 2025-09-06 | Outpatient (CLI) | payer OTHER, SELFPAY ==
[2025-09-06 10:09] LABS: Basophils # (Auto) 0.0 Thou/mm3 (0.0-0.2); Basophils % (Auto) 0 % (0-2.5); Eosinophils # (Auto) 0.2 Thou/mm3 (0.0-0.5); Eosinophils % (Auto) 2 % (0-10); Hematocrit 39.3 % (36.0-46.0); Hemoglobin 12.8 g/dL (12.0-16.0); Immature Granulocytes Auto 0.02 Thou/mm3 (0.00-0.00); Lymphocytes # (Auto) 2.4 Thou/mm3 (1.0-4.8); Lymphocytes % (Auto) 29 % (10-50); Mean Corpuscular HGB Conc 32.6 g/dl (31.0-37.0); Mean Corpuscular Hemoglobin 31.8 pg (25.0-35.0); Mean Corpuscular Volume 98 fL (80-100); Monocytes # (Auto) 0.6 Thou/mm3 (0.0-0.8); Monocytes % (Auto) 7 % (0-12); Neutrophils # (Auto) 5.3 Thou/mm3 (1.8-7.7); Neutrophils % (Auto) 62 % (37-80); Nucleated Red Blood Cell # 0.00 Thou/mm3 (0.00-0.00); Nucleated Red Blood Cell % 0 /100 WBC (0); Platelet Count 280 Thou/mm3 (140-440); RDW Standard Deviation 54.9 fL (36.4-46.3); Red Blood Count 4.02 Miln/mm3 (4.00-5.20); White Blood Count 8.5 Thou/mm3 (3.6-11.0)
[2025-09-06 10:26] LABS: Alanine Aminotransferase 17 U/L (10-49); Albumin, Serum 4.1 gm/dL (3.4-4.8); Albumin/Globulin Ratio 1.8 (1.2-2.2); Alkaline Phosphatase 87 U/L (46-116); Anion Gap 8 (7-16); Aspartate Amino Transferase 23 U/L (0-34); BUN/Creatinine Ratio 18 Ratio (12-20); Bilirubin,Total 0.3 mg/dL (0.3-1.2); Blood Urea Nitrogen 11 mg/dL (9-23); Calcium 9.1 mg/dL (8.3-10.6); Calcium (Corrected) 9.1 mg/dL (8.5-10.1); Carbon Dioxide 30.0 mMol/L (20.0-31.0); Cardiac Risk Estimate 3.8 RATIO (3.7-5.6); Chloride 107 mMol/L (98-107); Cholesterol 136 mg/dL (132-200); Creatinine (Component) 0.6 mg/dL (0.6-1.3); Globulin 2.3 gm/dL (2.3-3.5); Glucose 144 mg/dL (74-106); HDL Cholesterol 36 mg/dL (40-60); LDL Cholesterol,Calculated 64 mg/dL (0-130); Osmolality,Calculated 291 (275-295); Potassium 4.2 mMol/L (3.4-5.1); Sodium 145 mMol/L (136-145); Total Protein 6.4 gm/dL (5.7-8.2); Triglycerides 180 mg/dL (30-150); eGFR > 60 See Note
[2025-09-06 11:09] LABS: Glucose Estimated Average 160 mg/dL (80-131); Hemoglobin A1C 7.2 % Hgb (4.8-6.0)
[2025-09-06 11:25] LABS: Creatinine MALB Rnd Ur 141 mg/dL (30-125); Microalbumin Creat Ratio 21 mg/gCrea (<30); Microalbumin, Random Urine 30 mg/L (0-300)
== END | disposition home or self-care (01) ==
LOC: COPL 09:03
PROVIDERS: PCP Family Medicine; Referring Provider Nurse Practitioner Family; Visit Provider Nurse Practitioner Family
DX: E11.65 Type 2 diabetes mellitus with hyperglycemia (principal)
CPT/HCPCS: 36415; 80053; 80061; 82043; 82570; 83036; 85025